=== PATIENT | female | born 1990 | race Two or more races ===

== ENCOUNTER → 2016-12-25 | Outpatient (CLI) | payer OTHER ==
--- NOTE | ~2016-12-25 | US80 ---
[facility] A Service of [facility] RADIOLOGY TEXT RESULTS PATIENT: PROSPER GLEZ LOCATION: [facility] : [birth year] UNIT #: [id number] AGE: [address]: KVNG JADE APRN SEX: F ORDER DR: [id number] [facility] [address] [place], [place] [address] [id number] O MR#: [id number] Acc #: [id number] NAME: PROSPER GLEZ : 1990 SEX: F STUDY DATE/TIME: 12/25/2016 13:27 UNIT: [facility] ROOM: STUDY DESCRIPTION: US Kidney Unilateral Complete Attending Physician: Sherly Jade M.D. Referring Physician: Sherly Jade M.D. Ordering Physician: Sherly Jade M.D. Primary Care Physician: Justice Perez M.D. MEDICAL IMAGING REPORT This report is preliminary unless electronic signature is present EXAM Right renal ultrasound 12/25/2016 HISTORY Right kidney pain, right flank pain for 1 month with no known injury. FINDINGS The right kidney measures 11.9 cm in longitudinal dimensions. There is no evidence of hydronephrosis or nephrolithiasis. No cystic or solid mass lesions were seen about the right kidney. The left kidney was not visualized. Images of the bladder are normal. IMPRESSION 1. Negative right kidney. 2. The left kidney was not visualized. 3. Images of the bladder are normal. Dictated by... Otto Russo M.D. THIS IS AN ELECTRONICALLY VERIFIED REPORT Otto Russo M.D. at 12/28/2016 4:36 PM KRT/pcl TD: 12/25/2016 16:10 JOB #: [id number] MEDICAL IMAGING REPORT Page 1 of 1 COPY
== END | disposition home or self-care (01) ==
LOC: CWCC 13:14
DX: R10.9 Unspecified abdominal pain (principal)
CPT/HCPCS: 76770